=== PATIENT | female | born 1985 | race Caucasian/White ===

== ENCOUNTER → 2016-09-13 | Outpatient (REF) | LOC: WSOH 08:34 → WSPT 09:30 | DX: Z02.1 Encounter for pre-employment examination (principal) ==

== ENCOUNTER → 2016-09-15 | Outpatient (REF) | LOC: WSOH 14:27 | DX: Z02.89 Encounter for other administrative examinations (principal) ==

== ENCOUNTER → 2016-09-16 | Outpatient (REF) | LOC: WSOH 14:47 | DX: Z02.89 Encounter for other administrative examinations (principal) ==

== ENCOUNTER → 2016-09-22 | Outpatient (REF) | LOC: WSOH 10:06 | DX: Z11.1 Encounter for screening for respiratory tuberculosis (principal) ==

== ENCOUNTER → 2016-11-12 | Outpatient (REF) | LOC: WSOH 17:00 | DX: Z02.89 Encounter for other administrative examinations (principal) ==

== ENCOUNTER 2017-05-16 09:41 | Outpatient (CLI) | payer OTHER ==
[~2017-05-16] VITALS: Ht 170.2 cm; Wt 65.7 kg
[~2017-05-16 09:41] MED LIST: MAGNESIUM200 MG PO; MASON NATURAL2000 IU PO; MULTI VITAMINS1 TAB PO; OMEGA-31 SGL PO; PROBIOTIC ACID1 EAC3 PO; VITAMINC1000TA PO
[2017-05-16 10:09] VITALS: BP 117/68; PULSE 76
[2017-05-16 11:30] VITALS: BP 120/72; PULSE 69
[2017-05-16 11:36] VITALS: BP 120/72; PULSE 58
[2017-05-16 11:45] VITALS: BP 111/73; PULSE 60
[2017-05-16 12:15] VITALS: BP 104/69; PULSE 67
[2017-05-16 12:29] LABS: GLUCOSE,CSF 58 mg/dL (40-70); TOTAL PROTEIN,CSF 30 mg/dL (15-45)
[2017-05-16 12:30] VITALS: BP 103/70; PULSE 79
[2017-05-16 13:00] LABS: CSF APPEARANCE CLEAR; CSF COLOR COLORLESS; CSF RBC 0 /mm3 (0-0)
[2017-05-16 13:01] LABS: CSF MONONUCLEAR 100 % (70-100); CSF POLYMORPHONUCLEAR 0 % (0-6)
== END 2017-05-16 12:48 | disposition home or self-care (01) ==
LOC: COL.RAD 09:41
PROVIDERS: Neurological Surgery
DX: D49.7 Neoplasm of unspecified behavior of endocrine glands and other parts of nervous system (principal)

== ENCOUNTER 2017-07-03 23:39 | Emergency (ER) | payer BC ==
[~2017-07-03] VITALS: Ht 170.2 cm; Wt 63.6 kg
[2017-07-03 23:58] VITALS: BP 131/82; TEMP 98.2
[2017-07-04 01:05] LABS: BASO % 0.7 % (0.0-2.0); EOS # 0.1 (0.0-0.7); EOS % 1.7 % (0-4.0); GRAN # 2.9 (1.4-6.5); GRAN % 51.1 % (42.2-75.2); LYMPH # 2.1 (1.2-3.4); LYMPH % 36.8 % (20.0-51.0); MEAN CELL VOLUME 65 fl (80.0-100.0); MEAN CORPUSCULAR HGB CONC 33 g/dl (33.0-37.0); MEAN PLATELET VOLUME 10.8 fl (7.4-10.4); MONO # 0.6 (0.1-0.6); MONO % 9.5 % (1.7-9.3); PLATELET COUNT 183 K/mm3 (130-400); REDCELL DISTRIBUTION WIDTH-CV 17.3 % (11.5-14.5)
[2017-07-04 01:08] LABS: HEMATOCRIT 31.2 % (37.0-47.0); HEMOGLOBIN 10.3 g/dl (12.5-16.0); MEAN CORPUSCULAR HEMOGLOBIN 21 pg (27.0-31.0)
[2017-07-04 01:15] LABS: CALCIUM 9.1 mg/dL (8.4-10.2); CREATININE, serum 0.57 mg/dL (0.52-1.25); POTASSIUM 3.7 mmol/L (3.4-5.0)
[2017-07-04 02:26] VITALS: PULSE 88
== END 2017-07-04 02:25 | disposition home or self-care (01) ==
LOC: COL.ER 23:39
PROVIDERS: Emergency Medicine
DX: R20.2 Paresthesia of skin (principal); Z88.6 Allergy status to analgesic agent; Z98.890 Other specified postprocedural states

== ENCOUNTER → 2017-07-11 | Outpatient (CLI) | payer BC | LOC: COL.RAD 09:35 | DX: R20.2 Paresthesia of skin (principal); R20.0 Anesthesia of skin | CPT/HCPCS: A9585 ==